=== PATIENT | female | born 1965 | race Caucasian/White ===

== ENCOUNTER 2024-10-22 08:18 | Emergency (ER) | payer MEDICAID, OTHER ==
[~2024-10-22] VITALS: Ht 167.6 cm; Wt 74.8 kg
[2024-10-22 08:35] VITALS: BP 144/101; TEMP 98.2; O2SAT 96
[2024-10-22] MEDS ORDERED: RABIES VACCINE (PCEC)/PF 1 EA KIT IM ONE (08:54)
[2024-10-22] MEDS ORDERED: AMOX-430 PO (08:58)
[2024-10-22] MEDS: RABIES IMMUNE GLOBULIN/PF 150 UNIT/ML VIAL IM ONE (09:28)
[2024-10-22] MEDS: RABIES VACCINE (PCEC)/PF 1 EA KIT IM ONE (09:32)
== END 2024-10-22 09:34 | disposition home or self-care (01) ==
LOC: ER 08:21
DX: S01.331A Puncture wound without foreign body of right ear, initial encounter (principal); Z88.2 Allergy status to sulfonamides; W54.0XXA Bitten by dog, initial encounter; Y93.K1 Activity, walking an animal; Y92.89 Other specified places as the place of occurrence of the external cause; Y99.8 Other external cause status
CPT/HCPCS: 90375

== ENCOUNTER 2024-10-24 08:25 | Emergency (ER) | payer OTHER ==
[~2024-10-24] VITALS: Ht 167.6 cm; Wt 74.8 kg
[~2024-10-24 08:25] MED LIST: AMOX-430 PO
[2024-10-24 08:31] VITALS: BP 123/102; TEMP 98
[2024-10-24] MEDS ORDERED: RABIES VACCINE (PCEC)/PF 1 EA KIT IM ONE (08:41)
[2024-10-24] MEDS: RABIES VACCINE (PCEC)/PF 1 EA KIT IM ONE (09:04)
[2024-10-24 09:06] VITALS: O2SAT 98
== END 2024-10-24 09:06 | disposition home or self-care (01) ==
LOC: ER 08:25
DX: S61.459D Open bite of unspecified hand, subsequent encounter (principal); W54.0XXD Bitten by dog, subsequent encounter; Z23 Encounter for immunization; Z88.2 Allergy status to sulfonamides

== ENCOUNTER 2024-10-28 11:05 | Emergency (ER) | payer OTHER ==
[~2024-10-28] VITALS: Ht 167.6 cm; Wt 75.3 kg
[2024-10-28 11:27] VITALS: BP 137/92; TEMP 98.6; O2SAT 97
[2024-10-28] MEDS ORDERED: RABIES VACCINE (PCEC)/PF 1 EA KIT IM ONE (12:46)
[2024-10-28] MEDS: RABIES VACCINE (PCEC)/PF 1 EA KIT IM ONE (12:53)
== END 2024-10-28 13:01 | disposition home or self-care (01) ==
LOC: ER 11:06
DX: S01.85XD Open bite of other part of head, subsequent encounter (principal); Z23 Encounter for immunization; Z88.2 Allergy status to sulfonamides; Z60.2 Problems related to living alone; Z87.39 Personal history of other diseases of the musculoskeletal system and connective tissue; W64.XXXD Exposure to other animate mechanical forces, subsequent encounter

== ENCOUNTER 2024-11-04 10:10 | Emergency (ER) | payer OTHER ==
[~2024-11-04] VITALS: Ht 167.6 cm; Wt 76.2 kg
[2024-11-04 10:18] VITALS: BP 121/84; TEMP 98.2; O2SAT 98
[2024-11-04] MEDS: RABIES VACCINE (PCEC)/PF 1 EA KIT IM ONE (10:30)
[2024-11-04] MEDS ORDERED: RABIES VACCINE (PCEC)/PF 1 EA KIT IM ONE (10:38)
== END 2024-11-04 10:58 | disposition home or self-care (01) ==
LOC: ER 10:15
DX: S09.8XXD Other specified injuries of head, subsequent encounter (principal); Z23 Encounter for immunization; Z88.2 Allergy status to sulfonamides; Z87.39 Personal history of other diseases of the musculoskeletal system and connective tissue; Z60.2 Problems related to living alone; X58.XXXD Exposure to other specified factors, subsequent encounter